=== PATIENT | female | born 1965 | race Caucasian/White ===

== ENCOUNTER 2024-12-31 12:43 | Outpatient (AMB) | payer OTHER, SELFPAY ==
--- NOTE | 2024-12-31 12:59 | MHC.OFFVIS ---
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: No Allergies acetaminophen [From Percocet] Allergy (Mild, Verified 12/31/24 13:08) rash oxycodone [From Percocet] Allergy (Mild, Verified 12/31/24 13:08) rash Penicillins Allergy (Mild, Verified 12/31/24 13:08) rash morphine Adverse Reaction (Mild, Verified 12/31/24 13:08) alter mental state Medication List - Last Reconciled 12/31/24 by Kodak Swan MD cholecalciferol (vitamin D3) 125 mcg PO DAILY duloxetine 60 mg PO DAILY famotidine 20 mg PO .everyother day fluoxetine 40 mg PO DAILY gelatin capsules (empty) (Capsule #3 capsule) 1 cap PO DAILY lorazepam 0.5 mg PO DAILY PRN naltrexone 3.5 mg PO DAILY omeprazole 10 mg PO DAILY pyridostigmine bromide 60 mg PO BID HPI Comments Details: Caroline was referred here for management of dysautonomia. Said this was diagnose in 2018 and she underwent testing in [facility]. She had a level 3 CPET testing for symptoms of persistent exertional tachycardia. She was subsequently told by testing that she had preload failure due to dysautonomia related to small sensory fiber neuropathy causing poor venous return and causing compensatory tachycardia. She was then advised to stop Florinef therapy but she deferred. She continues to have symptoms of exertional tachycardia and with minimal exertional feel short of breath and notices heart rate to be elevated with minimal exercise. She was not able to do much upright exercise related to the same. She is currently doing physical therapy with more on ground exercises. However during the summer months she said she is pretty limited activity level and with minimal exertion even including in the house she gets significant tachycardia and is not able to get out of the house. She has lot of functional limitations to it. She denies any syncopal episodes. No exertional chest pain. No prolonged palpitation irregular heartbeat. She was to have a smart watch which she was to monitor heart rate and says heart rate would easily remained high in the 140 range. She is looking for more therapeutic options. She drinks about a L and half of water every day and about a g and a half of additional salt intake in addition to liberalizing her salt intake in his diet. Denies any significant caffeine or alcohol intake. She says she was longstanding history of depression. However she is looking to improve the quality of her life currently with medical therapy. [facility] Surgical History History of right shoulder replacement Family History Father CAD (coronary artery disease) Mother No problems noted. Social History Patient Tobacco Use Status: Never used Tobacco Review of Systems Const Denies chills, Denies daytime sleepiness, Denies fatigue, Denies fever(s), Denies frequent falls, Denies poor appetite, Denies snoring, Denies stops breathing during sleep, Denies weakness, Denies weight gain and Denies weight loss Eyes Denies loss of vision ENT Denies dizziness and Denies hearing loss Card Denies chest pain, Reports rapid heart rate, Denies claudication, Denies leg edema, Reports palpitations, Denies dyspnea, Reports dyspnea on exertion and Denies orthopnea Resp Denies cough, Denies excessive phlegm production, Denies dyspnea, Reports dyspnea on exertion, Denies snoring and Denies wheezing GI Denies abdominal pain, Denies hematochezia, Denies change in bowel habits, Denies nausea and Denies vomiting Denies urinary frequency and Denies dysuria Musc Denies arthralgias, Denies muscle weakness, Denies numbness and Denies other (frequent falls) Skin/Breast Denies nail changes and Denies rash Neuro Denies Abnormal speech present, Denies dizziness, Denies frequent falls, Denies loss of vision, Denies memory loss, Denies numbness and Denies weakness Psych Denies depression and Denies memory loss Endo Denies fatigue and Reports palpitations Dmitriy/Lymph Reports easy bruising and Reports other (anemia) Aller/Immun Denies wheezing Physical Exam Vital Signs: Last Vital Signs Pulse 114 H 12/31/24 13:23 BP 138/97 H 12/31/24 13:23 BMI result Body Mass Index 28.3 Const General: cooperative, comfortable, no acute distress, alert, awake and anxious Nutritional Appearance: overweight Orientation/consciousness: patient oriented x3 Limitations: no limitations HEENT Head: Yes normocephalic and Yes atraumatic Neck Neck: Yes trachea midline, Yes supple and Yes no JVD Resp Effort & Inspection: normal respiratory effort Auscultation: clear to auscultation bilaterally Cardio Jugular venous distension: no JVD Rate: tachycardic Rhythm: regular rhythm Heart sounds: S1 normal heart sound present, S2 normal heart sound present, no click, no gallops, no murmurs and no rubs GI Auscultation: normal bowel sounds Skin General skin exam: no rashes or lesions noted Neuro General: patient oriented x3 and no focal motor deficits Speech: No Abnormal speech present Extrem General: Yes no clubbing, cyanosis or edema Psych Appearance: grossly normal Office Procedures EKG Details: EKG shows sinus tachycardia at 101 beats per minute [id number], Complete Assessment & Plan Assessment & Plan (1) Dysautonomia: Code(s): G90.1 - Familial dysautonomia [Dawson-Day] Category: Medical Plan: Patient was dysautonomia related to autonomic dysfunction related to small sensory fiber neuropathy with preload failure diagnose by lvel 3 CPET testing at [facility]. I would like to review the report if possible. At current point time we discussed about management of dysautonomia. She has predominantly postural orthostatic tachycardia syndrome as well as inappropriate sinus tachycardia to exercise with minimal exertion. She has significant limitations to her day-to-day life and would like to have improved quality of life. He was discussed about mechanism of orthostatic tachycardia which she understands well. Difficulty in managing her symptoms and treatment predominantly being palliative to improve her symptoms was discussed. She says she has been worked up for autoimmune disorder but there has been no obvious autoimmune markers that would qualify for immunoglobulin therapy. At this point time volume expansion in his treatment option to try to counter and improve preload to reduce tachycardic response with exercise and upright positioning. This was discussed with her. I have advised her to enhance her oral fluid intake to about 2 L and increase her salt intake to 4 g a day. Will also prescribe her Florinef 0.1 mg daily as a volume calibration specialist. Will see how she clinically response to this. Advised to monitor blood pressure at home. Will obtain an echo and a Holter monitor in months time. Follow up in the clinic in 2 months time, sooner p.r.n.. Thank you for allowing me to partake in her care Orders: Orders CA echo transthoracic complete 1 Month G90.1 - Familial dysautonomia [Dawson-Day] ECG 3 day holter monitor 1 Month G90.1 - Familial dysautonomia [Dawson-Day] Medications: New fludrocortisone 0.1 mg PO DAILY 30 tabs 5RF Coding Level of Care Code New Pt Level 4 (19715) Complex EM visit Add On G2211 Diagnoses Dysautonomia G90.1 CPT Codes EKG - CPT: 60580-[id number], Complete ([id number])
[2024-12-31 13:00] VITALS: BP 128/87; PULSE 95; BMI 28.3
[2024-12-31 13:21] VITALS: BP 129/92; PULSE 100
[2024-12-31 13:23] VITALS: BP 138/97; PULSE 114
== END 2024-12-31 13:57 | disposition home or self-care (01) ==
LOC: HO.HCS 12:43
PROVIDERS: PCP Nurse Practitioner Family; Visit Provider Internal Medicine Cardiovascular Disease
DX: G90.1 Familial dysautonomia [Riley-Day] (principal)
CPT/HCPCS: 93010; 99204; G2211

== ENCOUNTER → 2024-12-31 12:43 | Outpatient (BNVA) | payer OTHER, SELFPAY | PROVIDERS: PCP Nurse Practitioner Family; Visit Provider Internal Medicine Cardiovascular Disease | DX: G90.1 Familial dysautonomia [Riley-Day] (principal) | CPT/HCPCS: 93005; 99202 ==

== ENCOUNTER → 2025-02-06 13:50 | Outpatient (REF) | payer OTHER, SELFPAY ==
--- NOTE | 2025-02-06 13:52 | HM_ITS ---
* Total monitoring time 3 days. * Underlying rhythm is sinus with an average rate of 82/Min. * Rare supraventricular ectopy. * Rare ventricular ectopy. * No significant pauses or high-grade AV blocks. * No patient markers or diary events. MTDD
--- NOTE | 2025-02-06 13:52 | CA_ITS ---
Transthoracic Echocardiogram Patient (Last, First, Middle): Caroline Lovell, Gender: Female Date of : 1965 Age: 59 Procedure Date: 02/06/2025 Procedure Type: Transthoracic Echocardiogram Location: OP Height: 170.18 cm Weight: 81.65 kg BSA: 1.93 m2 Heart Rate: 91 bpm BP: 128 / 87 mmHg Wave Solder Offbearer: PANCHO Referring MD: Kodak Swan MD Nonprofit Manager: Kodak Swan MD Symptoms: G90.1 - Familial dysautonomia [] Study Quality: Adequate ECG Rhythm: Sinus Conclusions: - 1. Normal LV ejection fraction 55-60% with grade 1 diastolic dysfunction 2. Mild mitral regurgitation 3. Normal LV systolic pressure 4. Mildly dilated ascending aorta 3.9 cm 5. No pericardial effusion Findings Left Ventricle Normal left ventricular size, thickness, and systolic function. The visually estimated ejection fraction is between 55-60%. Spectral Doppler is indicative of an impaired relaxation filling pattern. E/E prime ratio is <8, consistent with normal filling pressures. Evidence suggests grade I (mild) diastolic dysfunction. Right Ventricle Normal right ventricular cavity size and systolic function. Atria Both atria are normal in size. Interatrial shunt cannot be excluded. Aortic Valve Normal aortic valve structure and function. There is no aortic valve stenosis. There is no aortic valve regurgitation. Mitral Valve Normal mitral valve structure and function. There is mild mitral valve regurgitation. There is no mitral valve stenosis. Pulmonic Valve The pulmonic valve is likely normal. Tricuspid Valve Normal tricuspid valve structure. There is trace tricuspid valve regurgitation. The right ventricular systolic pressure is normal. The right ventricular systolic pressure is 22 mmHg. Normal right atrial pressure. There is no evidence of pulmonary hypertension. Great Vessels The pulmonary artery was not well visualized. There is mild dilatation of the ascending aorta measuring 3.80 cm. Venous The inferior vena cava is normal in size and collapses greater than 50% with inspiration. Pericardium/Pleural There is no evidence of pericardial effusion. Prior Study Comparison No prior study available for comparison. Measurements 2D Linear Measurements IVSd: 0.81 0.6-0.9/0.6-1.0 cm LVIDd: 4.67 3.9-5.3/4.2-5.9 cm LVIDd Index: 2.42 2.4-3.2/2.2-3.1 cm/m2 LVIDs: 2.69 2.0-3.6 cm LVPWd: 0.80 0.7-1.1 cm LA Diam: 3.30 2.7-3.8/3.0-4.0 cm LAIDs Index: 1.71 1.5-2.3 cm/m2 LV Mass: 151.29 67-162/88-224 g LV Mass Index: 78.39 43-95/49-115 g/m2 LVOT Diam: 2.00 3.0+(-)1.3 cm 2D Systolic Function EF 4C: 62.20 >55% EF 2C: 54.70 >55% EF BiP: 58.50 >55% Mitral Valve MV Pk E: 0.80 MV PK A: 0.86 MV Decel Time: 299.00 E/A: 0.90 E'Lateral: 8.59 E'Medial: 6.42 E/E' Med: 12.50 E/E' Lat: 9.30 PHT: 88.00 MVA PHT: 2.[address] [facility]: 2.68 Aortic Valve AoV Pk Bonifacio: 1.44 AoV Mn Bonifacio: 1.02 AoV VTI: 0.28 AoV Pk Grad: 8.00 Aov Mn Grad: 5.00 BEVERLEY Cont.VTI: 2.17 LVOT LVOT Pk Bonifacio: 1.02 LVOT Mn Bonifacio: 0.73 LVOT VTI: 0.19 LVOT Pk Grad: 4.00 LVOT Mn Grad: 2.00 LVOT Diam: 2.00 LVOT Area: 3.14 Diastolic Function MV Pk E: 0.80 MV Pk A: 0.86 E/A: 0.90 E'Medial: 6.42 E/E' Med: 12.50 E' Laterial: 8.59 E/E' Lat: 9.30 Right Ventricle TAPSE (mm): 23.20 TVS' Bonifacio: 12.60 Tricuspid Valve TR Pk Bonifacio: 2.16 TR Pk Grad: 19.00 RA Press: 3.00 RVSP: 22.00 Great Vessels Aorta Sinus of Valsalva: 3.44 2.0-3.5 cm Ao Asc: 3.80 2.1-3.4 cm Ao Arch: 3.10 Updated in Other Vendor System with Status of Final Kodak Swan MD electronically signed on 02/07/2025 12:49:56 PM with status of Final
== END ==
LOC: HO.CARD 13:50
PROVIDERS: Visit Provider Internal Medicine Cardiovascular Disease
DX: G90.1 Familial dysautonomia [Riley-Day] (principal); I51.89 Other ill-defined heart diseases; I49.1 Atrial premature depolarization
CPT/HCPCS: 93242; 93306

== ENCOUNTER → 2025-02-06 13:52 | Outpatient (BNV) | payer OTHER, SELFPAY | PROVIDERS: Visit Provider Internal Medicine Cardiovascular Disease | DX: G90.1 Familial dysautonomia [Riley-Day] (principal); I34.0 Nonrheumatic mitral (valve) insufficiency; I51.89 Other ill-defined heart diseases | CPT/HCPCS: 93306 ==

== ENCOUNTER 2025-03-04 13:40 | Outpatient (AMB) | payer OTHER, SELFPAY ==
[2025-03-04 13:44] VITALS: BP 110/70; PULSE 101; BMI 28.3
--- NOTE | 2025-03-04 13:44 | A.OFFVIS_ITS ---
Vital Signs 03/04/25 13:44 Height 5 ft 7 in Weight 180 lb 12.465 oz BMI 28.3 BP 110/70 Blood Pressure Location Lt brachial Position Sitting Pulse 101 H Intake Visit Reasons: 2 mth f/up 3 day/ echo Intake Note: 2 month Follow-up 3 day holter and echo tried fludrocortisone for 10 days still having tachycardia Relief Pharmacist Required: No Allergies acetaminophen [From Percocet] Allergy (Mild, Verified 12/31/24 13:08) rash oxycodone [From Percocet] Allergy (Mild, Verified 12/31/24 13:08) rash Penicillins Allergy (Mild, Verified 12/31/24 13:08) rash morphine Adverse Reaction (Mild, Verified 12/31/24 13:08) alter mental state Medication List - Last Reconciled 03/04/25 by Kodak Swan MD cholecalciferol (vitamin D3) 125 mcg PO DAILY duloxetine 60 mg PO DAILY famotidine 20 mg PO .everyother day fluoxetine 40 mg PO DAILY lorazepam 0.5 mg PO DAILY PRN naltrexone 3.5 mg PO DAILY omeprazole 10 mg PO .everyother day pyridostigmine bromide 30 mg PO TID HPI Comments Details: Caroline comes for follow-up. She could not tolerate the side effects of fludrocortisone therapy and made her more irritable. Patient has increase the pyridostigmine 30 mg t.i.d. and has increase her water and salt intake. She did have a Holter monitor which showed average heart rate of 82 beats per minute whi ch well controlled with no significant arrhythmias. Patient says she was mostly resting 1 day during the procedure. Echocardiogram shows normal cardiac structure and function [facility] Surgical History History of right shoulder replacement Family History Father CAD (coronary artery disease) Mother No problems noted. Social History Patient Tobacco Use Status: Never used Tobacco Review of Systems Const Denies chills, Denies fatigue, Denies fever(s), Denies frequent falls, Denies weakness, Denies weight gain and Denies weight loss ENT Denies dizziness Card Denies chest pain, Denies leg edema, Denies lightheadedness, Denies palpitations, Denies dyspnea, Denies dyspnea on exertion, Denies orthopnea and Denies other (loss of consciousness) Resp Denies cough, Denies dyspnea and Denies dyspnea on exertion GI Denies hematochezia and Denies change in stool character Musc Denies abnormal gait, Denies muscle weakness, Denies numbness, Denies radiating pain into limb and Denies tingling Neuro Denies Abnormal speech present, Denies abnormal gait, Denies dizziness, Denies frequent falls, Denies numbness, Denies tingling and Denies weakness Endo Denies fatigue and Denies palpitations Physical Exam Vital Signs: Last Vital Signs Pulse 101 H 03/04/25 13:44 BP 110/70 03/04/25 13:44 BMI result Body Mass Index 28.3 Const General: cooperative, comfortable, no acute distress, alert, awake and anxious Nutritional Appearance: overweight Orientation/consciousness: patient oriented x3 Limitations: no limitations HEENT Head: Yes normocephalic and Yes atraumatic Neck Neck: Yes trachea midline, Yes supple and Yes no JVD Resp Effort & Inspection: normal respiratory effort Auscultation: clear to auscultation bilaterally Cardio Jugular venous distension: no JVD Rate: tachycardic Rhythm: regular rhythm Heart sounds: S1 normal heart sound present, S2 normal heart sound present, no click, no gallops, no murmurs and no rubs GI Auscultation: normal bowel sounds Skin General skin exam: no rashes or lesions noted Neuro General: patient oriented x3 and no focal motor deficits Speech: No Abnormal speech present Extrem General: Yes no clubbing, cyanosis or edema Psych Appearance: grossly normal Assessment & Plan Assessment & Plan (1) Dysautonomia: Code(s): G90.1 - Familial dysautonomia [] Category: Medical Plan: Patient was dysautonomia currently being treated with increase fluid and salt intake as well as pyridostigmine. She is doing well with that. She has not had any major symptoms except for elevated heart rate noted multiple times. Although this was not noted on her Holter monitor. Benign nature of overall this autonomic syndrome was discussed with her. Advised to continue maintain adequate hydration and salt intake and increase intake during hot and humid weather. She understands management well. No indication for alternative pharmacotherapy at this point time. (2) Ascending aorta dilatation: Code(s): I77.810 - Thoracic aortic ectasia Category: Medical Plan: Mildly dilated ascending aorta on echocardiogram. Surgical interventions required at this point time. She also has mild mitral regurgitation. Will continue monitor by echocardiogram on annual basis. Advised to maintain adequate activity level. Will follow up in the clinic in 1 year's time, sooner p.r.n.. Thank you for allowing me to partake in her care Coding Level of Care Code Est Pt Level 4 (10493) Complex EM visit Add On G2211 Diagnoses Dysautonomia G90.1 Ascending aorta dilatation I77.810
== END 2025-03-04 14:24 | disposition home or self-care (01) ==
LOC: HO.HCS 13:41
PROVIDERS: PCP Nurse Practitioner Family; Visit Provider Internal Medicine Cardiovascular Disease
DX: G90.1 Familial dysautonomia [Riley-Day] (principal); I77.810 Thoracic aortic ectasia
CPT/HCPCS: 99214; G2211

== ENCOUNTER → 2025-03-04 13:40 | Outpatient (BNVA) | payer OTHER, SELFPAY | PROVIDERS: PCP Nurse Practitioner Family; Visit Provider Internal Medicine Cardiovascular Disease | DX: G90.1 Familial dysautonomia [Riley-Day] (principal); I77.810 Thoracic aortic ectasia | CPT/HCPCS: 99212 ==